=== PATIENT | male | born 1965 | race Caucasian/White ===

== ENCOUNTER 2025-08-02 10:28 | Inpatient (IN) | payer SELFPAY ==
[~2025-08-02] VITALS: Ht 175.3 cm; Wt 68.1 kg
[2025-08-02 11:43] LABS: PLATELET COUNT (AUTO) 327 K/uL (150-450); RED BLOOD CELL COUNT(AUTO) 5.02 MIL/uL (4.50-5.90); RED CELL DISTRIBUTION WIDTH 13.2 % (11.5-14.5); WHITE BLOOD COUNT (AUTO) 8.4 K/uL (4.5-11.0)
[2025-08-02 11:46] LABS: CALCIUM, TOTAL 9.5 mg/dL (8.8-10.5); CREATININE 0.76 mg/dL (0.60-1.30); GLOMERULAR FILTR. RATE CALC > 60 mL/min (>60); GLUCOSE,RANDOM 90 mg/dL (70-110); SODIUM SERUM 142 mmol/L (136-145); UREA NITROGEN, BLOOD 17 mg/dL (7-18)
[2025-08-02 11:54] LABS: LACTIC ACID 0.9 mmol/L (0.4-2.0)
[2025-08-02] MEDS: SODIUM CHLORIDE 0.9% 1,000 ML IV ONE (11:57)
[2025-08-02] MEDS: CEFEPIME HCL 2 GM in DEXTROSE 5%-WATER 50 ML IV ONE (11:57)
[2025-08-02] MEDS: VANCOMYCIN 1.25 GM/WATER(PEG) 250 ML IV ONE (12:38)
[2025-08-02] MEDS ORDERED: OxyCODONE HCL/ACETAMINOPHEN 5-325 MG TABLET PO PRN (13:15)
[2025-08-02] MEDS ORDERED: ONDANSETRON HCL 4 MG/2 ML VIAL IVP PRN (13:15)
[2025-08-02] MEDS ORDERED: MAGNESIUM HYDROXIDE SUSPENSION 30 ML UDCUP PO PRN (13:15)
[2025-08-02] MEDS ORDERED: ZOLPIDEM TARTRATE 5 MG TABLET PO PRN (13:15)
[2025-08-02] MEDS: *CLINICAL-CEFEPIME DOSING CLINICAL ONE (13:22)
[2025-08-02] MEDS: OxyCODONE HCL/ACETAMINOPHEN 5-325 MG TABLET PO PRN (13:47)
[2025-08-02 14:23] LABS: APPEARANCE,URINE CLEAR (CLEAR); GLUCOSE, URINE (UA) NEGATIVE (NEGATIVE); LEUKOCYTE ESTERASE ,URINE NEGATIVE (NEGATIVE); NITRATE,URINE NEGATIVE (NEGATIVE); OCCULT BLOOD,URINE NEGATIVE (NEGATIVE); SPECIFIC GRAVITIY, URINE 1.010 (1.003-1.030)
[2025-08-02] MEDS ORDERED: GADOTERATE MEGLUMINE 10 MMOL/20 ML VIAL IVP ONE (15:59)
[2025-08-02] MEDS: DOCUSATE SODIUM 100 MG CAPSULE PO SCH (20:30)
[2025-08-02 22:33] VITALS: BP 162/98; PULSE 82; RESP 20; TEMP 98.4; O2SAT 97
[2025-08-02 22:50] VITALS: BP 184/106; PULSE 76
[2025-08-02] MEDS: VANCOMYCIN 1GM/WATER(PEG/NADA) 200 ML IV SCH (23:58)
[2025-08-03 00:12] VITALS: BP 164/100; PULSE 75
[2025-08-03 05:00] VITALS: BP 144/107; PULSE 77; RESP 18; TEMP 97.9; O2SAT 100
[2025-08-03] MEDS: CEFEPIME HCL 2 GM in DEXTROSE 5%-WATER 50 ML IV SCH (05:01)
[2025-08-03 07:15] LABS: CALCIUM, TOTAL 8.7 mg/dL (8.8-10.5); CREATININE 0.54 mg/dL (0.60-1.30); GLOMERULAR FILTR. RATE CALC > 60 mL/min (>60); GLUCOSE,RANDOM 97 mg/dL (70-110); SODIUM SERUM 139 mmol/L (136-145); UREA NITROGEN, BLOOD 15 mg/dL (7-18)
[2025-08-03] MEDS: FAMOTIDINE 20 MG TABLET PO SCH (08:17)
[2025-08-03 08:19] VITALS: BP 145/102; PULSE 65; RESP 18; TEMP 97.8; O2SAT 100
[2025-08-03] MEDS ORDERED: RINGERS SOLUTION,LACTATED 1,000 ML IV ONE (10:44)
[2025-08-03] MEDS ORDERED: CHLORHEXIDINE GLUCONATE 2% TOWELETTE [2'S/6'S] TP ONE (11:00)
[2025-08-03] MEDS ORDERED: PROPOFOL 1% 20 ML VIAL IVP ONE (11:10)
[2025-08-03] MEDS ORDERED: ONDANSETRON HCL 4 MG/2 ML VIAL IVP ONE (11:10)
[2025-08-03] MEDS ORDERED: DEXAMETHASONE SOD PHOS 4 MG/ML VIAL IVP ONE (11:10)
[2025-08-03] MEDS ORDERED: LIDOCAINE/PF 2% 5 ML VIAL IM ONE (11:10)
[2025-08-03 12:06] LABS: PH,URINE DRUG SCREEN 5.5 (5.0-8.0)
[2025-08-03 12:13] LABS: AMPHET/METH SCREEN,URINE NEGATIVE (NEGATIVE); BARBITURATE SCREEN, URINE NEGATIVE (NEGATIVE); CANNABINOID SCREEN,URINE NEGATIVE (NEGATIVE); COCAINE SCREEN,URINE NEGATIVE (NEGATIVE); METHADONE SCREEN, URINE NEGATIVE (NEGATIVE)
[2025-08-03 12:15] LABS: ALCOHOL, URINE DRUG SCREEN NEGATIVE (NEGATIVE)
[2025-08-03] MEDS: CHLORHEXIDINE GLUCONATE 2% TOWELETTE [2'S/6'S] TP ONE (12:55)
[2025-08-03] MEDS: ETHYL ALCOHOL 62% ANTISEPTIC NASAL SANITIZER 0.6 ML AMPUL NASAL ONE (12:55)
[2025-08-03] MEDS ORDERED: BUPIVACAINE HCL/PF 0.25% 30 ML VIAL ONE (14:54)
[2025-08-03] MEDS ORDERED: FentaNYL CITRATE PF 100 MCG/2 ML VIAL IVP PRN (15:30)
[2025-08-03] MEDS ORDERED: MEPERIDINE-PF 25 MG/ML VIAL IVP PRN (15:30)
[2025-08-03] MEDS: RINGERS SOLUTION,LACTATED 1,000 ML IV ONE (16:43)
[2025-08-03] MEDS: BUPIVACAINE HCL/PF 0.5% 30 ML VIAL ONE (17:25)
[2025-08-03 18:52] VITALS: BP 171/96; PULSE 70; RESP 18; TEMP 97.7; O2SAT 99
[2025-08-03 20:05] VITALS: BP 124/90; PULSE 74; RESP 18; TEMP 98.1; O2SAT 96
[2025-08-04 05:36] VITALS: BP 130/87; PULSE 79; RESP 18; TEMP 97.7; O2SAT 98
[2025-08-04] MEDS: ACETAMINOPHEN 325 MG TABLET PO PRN (05:45)
[2025-08-04 07:41] LABS: CALCIUM, TOTAL 8.8 mg/dL (8.8-10.5); CREATININE 0.67 mg/dL (0.60-1.30); GLOMERULAR FILTR. RATE CALC > 60 mL/min (>60); GLUCOSE,RANDOM 160 mg/dL (70-110); SODIUM SERUM 136 mmol/L (136-145); UREA NITROGEN, BLOOD 23 mg/dL (7-18)
[2025-08-04 08:55] VITALS: BP 137/89; PULSE 77; RESP 18; TEMP 97.7; O2SAT 99
[2025-08-04 16:48] VITALS: BP 148/94; PULSE 89; RESP 18; TEMP 97.9; O2SAT 100
[2025-08-04] MEDS: VANCOMYCIN 1.25 GM/WATER(PEG) 250 ML IV SCH (20:36)
[2025-08-04 20:39] VITALS: BP 140/84; PULSE 72; RESP 18; TEMP 97.9; O2SAT 97
[2025-08-05 05:08] VITALS: BP 140/98; PULSE 64; RESP 17; TEMP 97.8; O2SAT 97
[2025-08-05 08:00] VITALS: BP 180/107; PULSE 66; RESP 20; TEMP 97.7; O2SAT 95
[2025-08-05 08:15] LABS: CALCIUM, TOTAL 8.7 mg/dL (8.8-10.5); CREATININE 0.64 mg/dL (0.60-1.30); GLOMERULAR FILTR. RATE CALC > 60 mL/min (>60); GLUCOSE,RANDOM 89 mg/dL (70-110); SODIUM SERUM 141 mmol/L (136-145); UREA NITROGEN, BLOOD 14 mg/dL (7-18)
[2025-08-05] MEDS: OXYGEN THERAPY IH SCH (08:39)
[2025-08-05 09:00] VITALS: BP 139/92; PULSE 71
[2025-08-05] MEDS ORDERED: SULF-261 PO (12:27)
== END 2025-08-05 15:00 | disposition home or self-care (01) | DRG 580 ==
LOC: EMS 10:28 → EDH 13:14 → 4E 22:05
PROVIDERS: ADMIT Internal Medicine; ATTEND Internal Medicine
PROC: 0PBT0ZZ Excision of Right Finger Phalanx, Open Approach (ICD-10-PCS; principal; 2025-08-03 17:10)
DX: L03.012 Cellulitis of left finger (principal); L02.512 Cutaneous abscess of left hand; S61.402A Unspecified open wound of left hand, initial encounter; X58.XXXA Exposure to other specified factors, initial encounter; Y93.89 Activity, other specified; Y92.89 Other specified places as the place of occurrence of the external cause; Y99.8 Other external cause status
CPT/HCPCS: 73220; 80048; 80202; 80307; 81003; 83605; 85025; 86140; 87040; 87070; 87081; 87186; 87205; 99285; G0378; J0692; J1100; J2405; J2704; J3490; J7030; J7060; J7120